=== PATIENT | male | born 1985 | race Caucasian/White ===

== ENCOUNTER 2017-03-20 19:04 | Emergency (ER) | payer SELFPAY ==
[~2017-03-20] VITALS: Ht 180.3 cm; Wt 122.0 kg
[~2017-03-20 19:04] MED LIST: BACLOFEN10 MG OR; CEPHALEXIN500 MG PO; ELAVIL50 MG OR; FLEXERIL OR; MOBIC15 MG OR; SEROQUEL300 MG PO; TORADOL OR; ULTRAM50 MG OR
[2017-03-20] MEDS ORDERED: CEPHALEXIN500 MG PO (20:19)
[2017-03-20] MEDS ORDERED: ROBITUSSIN AC10 ML PO (20:19)
[2017-03-20 20:35] VITALS: BP 136/84
== END 2017-03-20 20:35 | disposition home or self-care (01) | DRG 153 ==
LOC: ED 19:04
DX: J06.9 Acute upper respiratory infection, unspecified (principal); F17.210 Nicotine dependence, cigarettes, uncomplicated; M19.90 Unspecified osteoarthritis, unspecified site; M79.7 Fibromyalgia

== ENCOUNTER 2018-09-11 19:33 | Emergency (ER) | payer SELFPAY ==
[~2018-09-11] VITALS: Ht 180.3 cm; Wt 104.5 kg
[~2018-09-11 19:33] MED LIST changes: +ROBITUSSIN AC10 ML PO; +ULTRAM50 M1 PO
[2018-09-11] MEDS ORDERED: RISPERDAL2 MG PO (19:38)
[2018-09-11] MEDS ORDERED: AMOXICILLIN875 MG PO (20:00)
[2018-09-11] MEDS ORDERED: PREDNISONE20 MG PO (20:00)
[2018-09-11 20:02] VITALS: BP 140/86
== END 2018-09-11 20:07 | disposition home or self-care (01) | DRG 153 ==
LOC: ED 19:33
DX: J02.9 Acute pharyngitis, unspecified (principal); R06.02 Shortness of breath; R05 Cough; R50.9 Fever, unspecified; F17.210 Nicotine dependence, cigarettes, uncomplicated